=== PATIENT | female | born 1985 | race Caucasian/White ===

== ENCOUNTER 2016-12-09 10:13 | Emergency (ER) | payer MEDICAID ==
[~2016-12-09] VITALS: Ht 154.9 cm; Wt 63.0 kg
[2016-12-09 10:17] VITALS: BP 119/64
[2016-12-09] MEDS ORDERED: PENICILLIN G BENZATHINE 600000UNITS/ML SYR IM ONE (10:45)
[2016-12-09] MEDS ORDERED: METHYLPREDNISOLONE SOD SUCC 40 MG/ML VIAL IM ONE (10:45)
== END 2016-12-09 11:49 | disposition home or self-care (01) ==
LOC: ER 10:36
DX: J02.9 Acute pharyngitis, unspecified (principal)
CPT/HCPCS: 96372; 99284; J0561; J2920; Z7610

== ENCOUNTER 2017-06-23 17:25 | Emergency (ER) | payer BC, MEDICAID ==
[~2017-06-23] VITALS: Ht 154.9 cm; Wt 63.0 kg
[2017-06-23] MEDS ORDERED: DEXAMETHASONE 10 MG/ML VIAL IM ONE (21:30)
[2017-06-23] MEDS ORDERED: PENICILLIN G BENZATHINE 1,200,000 UNITS/2ML SYR IM ONE (22:00)
[2017-06-23 22:30] VITALS: BP 136/75
== END 2017-06-23 22:45 | disposition home or self-care (01) ==
LOC: ER 18:22
DX: T63.441A Toxic effect of venom of bees, accidental (unintentional), initial encounter (principal); J02.0 Streptococcal pharyngitis; W57.XXXA Bitten or stung by nonvenomous insect and other nonvenomous arthropods, initial encounter; Y93.89 Activity, other specified; Y92.89 Other specified places as the place of occurrence of the external cause; Y99.8 Other external cause status
CPT/HCPCS: 87070; 87430; 96372; 99284; J0561; J1100